=== PATIENT | female | born 1960 | race African-American/Black ===

== ENCOUNTER 2022-06-18 21:30 | Inpatient (IN) | payer BC ==
[~2022-06-18] VITALS: Ht 170.2 cm; Wt 130.9 kg
[2022-06-18] MEDS ORDERED: SODIUM CHLORIDE 0.9% 1000ML BAG (SEPSIS BOLUS) IV ONE (22:15)
[2022-06-18] MEDS ORDERED: CEFTRIAXONE 2 G PREMIX 50 ML IV ONE (22:15)
[2022-06-18] MEDS ORDERED: ASPIRIN 81MG TABLET PO ONE (22:45)
[2022-06-18] MEDS ORDERED: CEFTRIAXONE 2 G in DEXT 5% WATER 100 ML IV SCH (23:15)
[2022-06-18 23:28] LABS: HEMATOCRIT. 42.7 % (36.0-48.0); HEMOGLOBIN. 13.6 g/dL (12.0-16.0); MEAN CORPUSCULAR HEMOGLOBIN 27.3 pg (28.0-32.0); MEAN CORPUSCULAR VOLUME 85.4 fL (81.0-99.0); MEAN PLATELET VOLUME 8.5 fl (7.4-10.4); PLATELET 125 x1000/uL (130-400); RED CELL DISTRIBUTION WIDTH 16.7 % (11.6-14.6)
[2022-06-18 23:35] LABS: CHLORIDE 103 mEq/L (98-107)
[2022-06-19 02:02] LABS: PLATELET ESTIMATE NORMAL
[2022-06-19] MEDS ORDERED: ENOXAPARIN 100MG/ML SYR SUBCUT ONE (02:15)
[2022-06-19] MEDS ORDERED: NITROGLYCERIN 50MG PREMIX 250 ML IV ONE ×2 (02:30)
[2022-06-19] MEDS ORDERED: MORPHINE SULFATE 2 MG/ML CPJ (NOT FOR IM USE) IV ONE (02:30)
[2022-06-19] MEDS ORDERED: CEFTRIAXONE 2 G in DEXT 5% WATER 100 ML IV SCH (03:00)
[2022-06-19] MEDS ORDERED: ASPIRIN 81MG TABLET PO NR (03:00)
[2022-06-19] MEDS ORDERED: CEFTRIAXONE 2 G PREMIX 50 ML IV ONE (03:00)
[2022-06-19] MEDS ORDERED: SODIUM CHLORIDE 0.9% 1,000 ML IV NR (03:00)
[2022-06-19] MEDS: IPRATROPIUM/ALBUTEROL 0.5-3(2.5)MG/3ML NEB HHN SCH (03:22)
[2022-06-19] MEDS ORDERED: NITROGLYCERIN 50MG PREMIX 250 ML IV PRN (07:30)
[2022-06-19] MEDS ORDERED: IPRATROPIUM/ALBUTEROL 0.5-3(2.5)MG/3ML NEB HHN PRN (07:30)
[2022-06-19] MEDS ORDERED: DOCUSATE SODIUM 100MG CAPSULE PO PRN (07:30)
[2022-06-19] MEDS ORDERED: ACETAMINOPHEN 325MG TABLET PO PRN (07:30)
[2022-06-19] MEDS ORDERED: ONDANSETRON HCL 4MG/2ML INJ IV PRN (07:30)
[2022-06-19] MEDS ORDERED: AZITHROMYCIN 500 MG in DEXT 5% WATER 250 ML IV SCH ×2 (08:00→17:00)
[2022-06-19] MEDS: FAMOTIDINE 20MG TABLET PO SCH ×2 (09:00→21:17)
[2022-06-19 12:50] VITALS: BP 100/67
[2022-06-19 13:00] VITALS: BP 100/67
[2022-06-19] MEDS ORDERED: FLUT1DIS3 INH (14:03)
[2022-06-19] MEDS ORDERED: HYDR25TA MT (14:03)
[2022-06-19] MEDS ORDERED: ROSU20TA2 MT (14:03)
[2022-06-19] MEDS ORDERED: BENZ100C86 MT (14:03)
[2022-06-19] MEDS ORDERED: IBUP-2030 MT (14:03)
[2022-06-19] MEDS ORDERED: MUPI1OIN4 TP (14:03)
[2022-06-19] MEDS ORDERED: PROM6.2514 MT (14:03)
[2022-06-19] MEDS ORDERED: P20 MT (14:03)
[2022-06-19] MEDS ORDERED: ERGO1250 PO (14:03)
[2022-06-19 16:00] VITALS: BP 114/73
[2022-06-19] MEDS: GUAIFENESIN 200MG/10ML SUGAR FREE UDC PO PRN ×2 (16:40→21:17)
[2022-06-19 17:30] LABS: HEMATOCRIT 38.4 % (36.0-48.0); HEMOGLOBIN 12.2 g/dL (12.0-16.0); MEAN CORPUSCULAR VOLUME 84.7 fL (81.0-99.0); PLATELET 132 x1000/uL (130-400); RED BLOOD CELL COUNT 4.53 mill/uL (4.2-5.4); RED CELL DISTRIBUTION WIDTH 16.1 % (11.6-14.6)
[2022-06-19] MEDS: ENOXAPARIN 150MG/ML SYR SUBCUT SCH (17:30)
[2022-06-19 19:22] LABS: CHLORIDE 109 mEq/L (98-107)
[2022-06-19 19:23] LABS: INR 1.1; PROTHROMBIN TIME 11.5 sec (9.6-11.0)
[2022-06-19 19:28] LABS: HDL CHOLESTEROL 56 mg/dL (40-59); LDL CHOLESTEROL 160 mg/dL (5-100)
[2022-06-19 20:00] VITALS: BP 103/64
[2022-06-19] MEDS ORDERED: ZOLPIDEM TARTRATE 5MG TABLET PO PRN (21:00)
[2022-06-19] MEDS: ATORVASTATIN CALCIUM 40MG TABLET PO SCH (21:17)
[2022-06-20] VITALS: BP 105/72
[2022-06-20 04:00] VITALS: BP 112/78
[2022-06-20] MEDS: ENOXAPARIN 150MG/ML SYR SUBCUT SCH ×2 (06:44→17:25)
[2022-06-20] MEDS: GUAIFENESIN 200MG/10ML SUGAR FREE UDC PO PRN ×3 (06:50→17:24)
[2022-06-20 07:01] LABS: CHLORIDE 108 mEq/L (98-107)
[2022-06-20 07:06] LABS: BASOPHILS % 0.6 % (0.0-2.0); EOSINOPHILS % 0.2 % (0.0-5.0); HEMATOCRIT. 38.5 % (36.0-48.0); HEMOGLOBIN. 12.2 g/dL (12.0-16.0); LYMPHOCYTES % 18.3 % (20.0-50.0); MEAN CORPUSCULAR HEMOGLOBIN 26.9 pg (28.0-32.0); MEAN PLATELET VOLUME 8.8 fl (7.4-10.4); MONOCYTES % 4.6 % (2.0-8.0); NEUTROPHILS % 76.3 % (40.0-76.0); PLATELET 157 x1000/uL (130-400); RED BLOOD CELL COUNT 4.53 mill/uL (4.2-5.4); RED CELL DISTRIBUTION WIDTH 16.5 % (11.6-14.6)
[2022-06-20 08:00] VITALS: BP 97/67
[2022-06-20] MEDS: FAMOTIDINE 20MG TABLET PO SCH ×2 (09:00→21:22)
[2022-06-20] MEDS ORDERED: IOHEXOL-350 100 ML BOTTLE ONE (10:19)
[2022-06-20] MEDS: AZITHROMYCIN 500 MG in DEXT 5% WATER 250 ML IV SCH (11:50)
[2022-06-20 12:00] VITALS: BP 106/74
[2022-06-20 16:00] VITALS: BP 101/76
[2022-06-20 20:00] VITALS: BP 102/55
[2022-06-20] MEDS: ATORVASTATIN CALCIUM 40MG TABLET PO SCH (21:22)
[2022-06-21] VITALS: BP 128/76
[2022-06-21 04:00] VITALS: BP 116/81
[2022-06-21] MEDS: ENOXAPARIN 150MG/ML SYR SUBCUT SCH ×2 (05:23→17:32)
[2022-06-21] MEDS: GUAIFENESIN 200MG/10ML SUGAR FREE UDC PO PRN ×3 (05:23→20:49)
[2022-06-21 08:00] VITALS: BP 114/73
[2022-06-21] MEDS: IPRATROPIUM/ALBUTEROL 0.5-3(2.5)MG/3ML NEB HHN SCH ×4 (08:19→22:08)
[2022-06-21] MEDS: FAMOTIDINE 20MG TABLET PO SCH ×2 (08:26→20:49)
[2022-06-21 12:00] VITALS: BP 119/75
[2022-06-21] MEDS: AZITHROMYCIN 500 MG in DEXT 5% WATER 250 ML IV SCH (12:34)
[2022-06-21 16:00] VITALS: BP 120/78
[2022-06-21 20:00] VITALS: BP 118/70
[2022-06-21] MEDS: ATORVASTATIN CALCIUM 40MG TABLET PO SCH (20:50)
[2022-06-22] VITALS: BP 110/65
[2022-06-22] MEDS: IPRATROPIUM/ALBUTEROL 0.5-3(2.5)MG/3ML NEB HHN SCH ×6 (00:13→20:13)
[2022-06-22 04:00] VITALS: BP 130/73
[2022-06-22] MEDS: GUAIFENESIN 200MG/10ML SUGAR FREE UDC PO PRN ×4 (05:52→19:29)
[2022-06-22] MEDS: ENOXAPARIN 150MG/ML SYR SUBCUT SCH ×2 (05:53→19:15)
[2022-06-22] MEDS: FAMOTIDINE 20MG TABLET PO SCH ×2 (09:54→21:33)
[2022-06-22] MEDS: AZITHROMYCIN 500 MG in DEXT 5% WATER 250 ML IV SCH (12:28)
[2022-06-22 20:00] VITALS: BP 136/75
[2022-06-22] MEDS: ATORVASTATIN CALCIUM 40MG TABLET PO SCH (21:32)
[2022-06-23] VITALS: BP 105/66
[2022-06-23] MEDS: IPRATROPIUM/ALBUTEROL 0.5-3(2.5)MG/3ML NEB HHN SCH ×6 (00:27→20:05)
[2022-06-23 04:00] VITALS: BP 136/80
[2022-06-23] MEDS: ENOXAPARIN 150MG/ML SYR SUBCUT SCH (06:00)
[2022-06-23 06:56] LABS: BASOPHILS % 0.5 % (0.0-2.0); EOSINOPHILS % 2.6 % (0.0-5.0); HEMATOCRIT. 36.1 % (36.0-48.0); HEMOGLOBIN. 11.6 g/dL (12.0-16.0); LYMPHOCYTES % 36.1 % (20.0-50.0); MEAN CORPUSCULAR HEMOGLOBIN 27.3 pg (28.0-32.0); MEAN CORPUSCULAR VOLUME 85.1 fL (81.0-99.0); MEAN PLATELET VOLUME 8.4 fl (7.4-10.4); MONOCYTES % 5.7 % (2.0-8.0); NEUTROPHILS % 55.1 % (40.0-76.0); PLATELET 191 x1000/uL (130-400); RED BLOOD CELL COUNT 4.24 mill/uL (4.2-5.4); RED CELL DISTRIBUTION WIDTH 16.3 % (11.6-14.6)
[2022-06-23 07:52] LABS: CHLORIDE 104 mEq/L (98-107)
[2022-06-23 08:00] VITALS: BP 104/69
[2022-06-23] MEDS: FAMOTIDINE 20MG TABLET PO SCH ×2 (09:02→21:53)
[2022-06-23] MEDS ORDERED: HEPARIN 1000 UNITS/ML 10ML ONE ×2 (09:52→10:47)
[2022-06-23] MEDS ORDERED: IODIXANOL 320MG/ML 100 ML BOTTLE IV ONE ×2 (09:52→11:14)
[2022-06-23] MEDS ORDERED: LIDOCAINE HCL 1% 50ML VIAL (10MG/ML) ONE (09:53)
[2022-06-23] MEDS ORDERED: FENTANYL CITRATE/PF 50MCG/ML 2ML VIAL ONE (10:02)
[2022-06-23] MEDS ORDERED: MIDAZOLAM HCL 2 MG/2 ML VIAL ONE (10:03)
[2022-06-23 12:00] VITALS: BP 126/103
[2022-06-23] MEDS ORDERED: ATROPINE SULFATE 1MG/10ML SYR IV PRN (12:00)
[2022-06-23] MEDS ORDERED: ACETAMINOPHEN 325MG TABLET PO PRN (12:00)
[2022-06-23] MEDS ORDERED: APIX5TAB MT (13:02)
[2022-06-23] MEDS: AZITHROMYCIN 500 MG in DEXT 5% WATER 250 ML IV SCH (15:54)
[2022-06-23 16:00] VITALS: BP 156/92
[2022-06-23] MEDS ORDERED: BENZONATATE 100MG CAPSULE PO PRN (17:30)
[2022-06-23 20:00] VITALS: BP 144/89
[2022-06-23] MEDS: ATORVASTATIN CALCIUM 40MG TABLET PO SCH (21:52)
[2022-06-23] MEDS: APIXABAN 5 MG TABLET PO SCH (21:54)
[2022-06-24] MEDS: GUAIFENESIN 200MG/10ML SUGAR FREE UDC PO PRN ×3 (02:15→21:16)
[2022-06-24 04:00] VITALS: BP 147/78
[2022-06-24] MEDS: IPRATROPIUM/ALBUTEROL 0.5-3(2.5)MG/3ML NEB HHN SCH ×5 (04:23→16:10)
[2022-06-24 07:03] LABS: BASOPHILS % 0.5 % (0.0-2.0); EOSINOPHILS % 1.2 % (0.0-5.0); HEMATOCRIT. 36.1 % (36.0-48.0); HEMOGLOBIN. 11.9 g/dL (12.0-16.0); LYMPHOCYTES % 17.3 % (20.0-50.0); MEAN CORPUSCULAR HEMOGLOBIN 27.8 pg (28.0-32.0); MEAN CORPUSCULAR VOLUME 84.3 fL (81.0-99.0); MEAN PLATELET VOLUME 8.9 fl (7.4-10.4); MONOCYTES % 5.8 % (2.0-8.0); NEUTROPHILS % 75.2 % (40.0-76.0); PLATELET 210 x1000/uL (130-400); RED BLOOD CELL COUNT 4.28 mill/uL (4.2-5.4); RED CELL DISTRIBUTION WIDTH 16.5 % (11.6-14.6)
[2022-06-24 07:16] LABS: CHLORIDE 104 mEq/L (98-107)
[2022-06-24 08:00] VITALS: BP 134/79
[2022-06-24] MEDS: APIXABAN 5 MG TABLET PO SCH ×2 (08:24→16:03)
[2022-06-24] MEDS: FAMOTIDINE 20MG TABLET PO SCH ×2 (08:24→21:16)
[2022-06-24 12:00] VITALS: BP 122/67
[2022-06-24 15:45] LABS: BG BASE EXCESS 4.1 mmol/L (-2.0-2.0); BG CARBOXYHEMOGLOBIN 0.2 % (0.5-1.5); BG DEOXYHEMOGLOBIN 12.7 % (0.0-5.0); BG HCO3 ACT 28.1 mmol/L (22.0-26.0); BG METHEMOGLOBIN 0.3 % (0.0-1.5); BG OXYGEN SATURATION 87.2 % (92.0-98.5); BG OXYHEMOGLOBIN 86.8 % (94.0-97.0); BG PCO2 39.9 mmHg (35.0-45.0); BG PH 7.465 (7.350-7.450); BG PO2 51.1 mmHg (75.0-100.0); BG SAMPLE SITE RIGHT RADIAL; BG TOTAL HEMOGLOBIN 12.8 g/dL (12.0-18.0); BG VENT MODE ROOM AIR
[2022-06-24 16:00] VITALS: BP 133/75
[2022-06-24 19:11] LABS: INFLUENZA A AB CF 1:16 (Neg:<1:8)
[2022-06-24 20:00] VITALS: BP 116/75
[2022-06-24] MEDS: ATORVASTATIN CALCIUM 40MG TABLET PO SCH (21:16)
[2022-06-25] VITALS: BP 124/80
[2022-06-25 04:00] VITALS: BP 111/73
[2022-06-25] MEDS: GUAIFENESIN 200MG/10ML SUGAR FREE UDC PO PRN (05:05)
[2022-06-25 08:00] VITALS: BP 121/74
[2022-06-25] MEDS: APIXABAN 5 MG TABLET PO SCH (09:15)
[2022-06-25] MEDS: FAMOTIDINE 20MG TABLET PO SCH (09:15)
[2022-06-25 12:00] VITALS: BP 153/71
[2022-06-25 13:08] VITALS: BP 153/71
[2022-06-30] MEDS ORDERED: APIXABAN 5 MG TABLET PO SCH (17:00)
== END 2022-06-25 17:14 | disposition home or self-care (01) | DRG 853 ==
LOC: ER 22:02 → MICUSO 06-19 02:24 → 7WST 06-19 14:15 → 3WST 06-23 12:14
PROVIDERS: ADMIT Internal Medicine Pulmonary Disease; ATTEND Internal Medicine Pulmonary Disease
PROC: 02CQ3ZZ Extirpation of Matter from Right Pulmonary Artery, Percutaneous Approach (ICD-10-PCS; principal; 2022-06-23)
PROC: 4A023N6 Measurement of Cardiac Sampling and Pressure, Right Heart, Percutaneous Approach (ICD-10-PCS; 2022-06-23)
PROC: B519YZZ Fluoroscopy of Inferior Vena Cava using Other Contrast (ICD-10-PCS; 2022-06-23)
PROC: B51BYZZ Fluoroscopy of Right Lower Extremity Veins using Other Contrast (ICD-10-PCS; 2022-06-23)
PROC: B31TYZZ Fluoroscopy of Left Pulmonary Artery using Other Contrast (ICD-10-PCS; 2022-06-23)
PROC: B31SYZZ Fluoroscopy of Right Pulmonary Artery using Other Contrast (ICD-10-PCS; 2022-06-23)
DX: A41.9 Sepsis, unspecified organism (principal); I21.4 Non-ST elevation (NSTEMI) myocardial infarction; J18.9 Pneumonia, unspecified organism; J96.01 Acute respiratory failure with hypoxia; I26.99 Other pulmonary embolism without acute cor pulmonale; Z68.42 Body mass index [BMI] 45.0-49.9, adult; I48.91 Unspecified atrial fibrillation; E66.9 Obesity, unspecified; E78.5 Hyperlipidemia, unspecified; J45.909 Unspecified asthma, uncomplicated; E11.9 Type 2 diabetes mellitus without complications; I10 Essential (primary) hypertension; Z88.0 Allergy status to penicillin; Z88.8 Allergy status to other drugs, medicaments and biological substances; Z79.899 Other long term (current) drug therapy
CPT/HCPCS: 36415; 36600; 37184; 71250; 71275; 80048; 80053; 80061; 82375; 82805; 83036; 84484; 85025; 85027; 85347; 86710; 87426; 87804; 93005; 93306; 93451; 93970; 94640; 99285; C1766; C1769; C1887; C1893; C1894; J0456; J0696; J1644; J1650; J2250; J2405; J3010; J3490; J7030; J7060; Q9967; C1757